=== PATIENT | male | born 1970 | race Caucasian/White ===

== ENCOUNTER → 2016-07-15 | Outpatient (CLI) | payer BC | LOC: KOH-I 11:47 | DX: M54.2 Cervicalgia (principal); R53.1 Weakness; M50.323 Other cervical disc degeneration at C6-C7 level | CPT/HCPCS: 72050 ==

== ENCOUNTER → 2021-10-07 | Outpatient (CLI) | payer BC | LOC: ECHO 11:56 → NM 13:00 | DX: R07.9 Chest pain, unspecified (principal); R06.02 Shortness of breath; E11.9 Type 2 diabetes mellitus without complications; I51.7 Cardiomegaly | CPT/HCPCS: ECHO; 78452; 93306; A9502; J2785 ==

== ENCOUNTER → 2021-10-30 | Outpatient (CLI) | payer BC ==
[2021-10-30 16:39] LABS: HEMOGLOBIN 14.6 gm/dl (14.0-17.5); RED BLOOD COUNT 4.91 M/UL (4.20-5.50); WHITE BLOOD COUNT 6.8 K/UL (4.5-11.0)
[2021-10-30 17:01] LABS: BUN/CREATININE RATIO 26 (0-10)
== END ==
LOC: LAB 15:57
PROVIDERS: Internal Medicine Interventional Cardiology
DX: J30.9 Allergic rhinitis, unspecified (principal); R07.9 Chest pain, unspecified; G47.33 Obstructive sleep apnea (adult) (pediatric); R06.02 Shortness of breath
CPT/HCPCS: 36415; 80048; 85025; 85610; 85730; 93005

== ENCOUNTER → 2021-11-11 | Outpatient (CLI) | payer BC ==
[~2021-11-11] VITALS: Ht 185.4 cm; Wt 138.8 kg
[~2021-11-11] MED LIST: ASPIRIN81 MG PO; ATORVASTATIN CA40 MG PO; GLUCOPHAGE XR500 M1 PO; KRILL OIL500 MG PO; LISINOPRIL10 MG PO; MULTI-VITAMIN1 EACH PO; PROVENTIL HFA6.7 GM INH; VITAMIN D3125 MCG PO; VITAMIN E400 UNI1 PO; VOLTAREN EC 7575 MG PO; ZANTAC-360 (FAM20 MG PO; ZYRTEC10 MG PO
== END ==
LOC: CATH 07:15
DX: R94.39 Abnormal result of other cardiovascular function study (principal); R06.02 Shortness of breath; E11.9 Type 2 diabetes mellitus without complications; Z79.84 Long term (current) use of oral hypoglycemic drugs; Z79.899 Other long term (current) drug therapy
CPT/HCPCS: 82962; 99152; C1769; C1887; C1894; J1644; J2250; J3010; J7040; Q9967